=== PATIENT | male | born 1985 | race Two or more races ===

== ENCOUNTER 2017-03-15 16:26 | Emergency (ER) | payer MEDICAID ==
[~2017-03-15] VITALS: Ht 193 cm; Wt 85.0 kg
[2017-03-15 16:50] VITALS: BP 123/82
== END 2017-03-15 20:40 | disposition left against medical advice (07) ==
LOC: ER 16:26
DX: Z53.21 Procedure and treatment not carried out due to patient leaving prior to being seen by health care provider (principal)